=== PATIENT | male | born 1960 | race Caucasian/White ===

== ENCOUNTER 2017-12-02 14:26 | Emergency (ER) | payer OTHER ==
[~2017-12-02] VITALS: Ht 172.7 cm; Wt 116.6 kg
[~2017-12-02 14:26] MED LIST: ADULT LOW DOSE81 MG PO; ASPIR 8181 MG PO; BENAZEPRIL HCL20 MG PO; CELEXA; CELEXA40 MG PO; CLONAZEPAM 0.50.5 M1 PO; CLONAZEPAM PO; COUMADIN 1MG TAB1 M1 PO; COUMADIN 3 MG TA3 M1 PO; COUMADIN 5 MG TA5 M1 PO; FENOFIBRATE160 MG PO; FLOMAX0.4 MG PO; HYTRIN 5 M5 MG/1 CAP PO; LOTENSIN; LOVASTAT40 PO; LOVASTATIN; MONTELUKAST SOD10 MG PO; OMEPRAZOLE 20 M20 M1 PO; OMEPRAZOLE PO; PRADAXA150 MG PO; PREDNISONE 10 M10 M1 PO; PREDNISONE 20 M20 M1 PO; PROAIR HFA8.5 GM INH; SORINE 80 MG TA80 MG PO; SOTALOL 120 MG120 M1 PO; SOTALOL 120 MG120 MG PO; TRICOR; VENTOLIN HFA 1818 GM INH; XOPENEX HF1 UDINHALE INH; ZPAK PO
[2017-12-02] MEDS ORDERED: COUMADIN 5 MG TA5 M1 PO ×2 (14:42)
[2017-12-02] MEDS ORDERED: DOXYCYCLINE 10100 MG PO (15:15)
[2017-12-02] MEDS ORDERED: KEFLEX500 M1 PO (15:15)
[2017-12-02 15:22] VITALS: BP 100/79
== END 2017-12-02 15:24 | disposition home or self-care (01) ==
LOC: M.ERS 14:26
DX: S30.861A Insect bite (nonvenomous) of abdominal wall, initial encounter (principal); I48.91 Unspecified atrial fibrillation; E78.00 Pure hypercholesterolemia, unspecified; Z88.5 Allergy status to narcotic agent; Z88.1 Allergy status to other antibiotic agents; Z87.891 Personal history of nicotine dependence; W57.XXXA Bitten or stung by nonvenomous insect and other nonvenomous arthropods, initial encounter; Y93.89 Activity, other specified; Y92.89 Other specified places as the place of occurrence of the external cause; Y99.8 Other external cause status; J45.909 Unspecified asthma, uncomplicated

== ENCOUNTER 2018-02-20 15:24 | Emergency (ER) | payer MEDICAID ==
[~2018-02-20] VITALS: Ht 172.7 cm; Wt 115.7 kg
[~2018-02-20 15:24] MED LIST changes: +DOXYCYCLINE 10100 MG PO; +KEFLEX500 M1 PO
[2018-02-20] MEDS ORDERED: COZAAR 25 MG TA25 M2 PO (15:42)
[2018-02-20] MEDS ORDERED: LOPRESSOR25 PO (15:42)
[2018-02-20 16:31] LABS: ABSOLUTE EOSINOPHILS 0.1 thou/uL (0.0-0.7); ABSOLUTE LYMPHOCYTES 2.3 thou/uL (0.8-5.3); ABSOLUTE MONOCYTES 0.7 thou/uL (0.0-1.2); ABSOLUTE NEUTROPHILS 3.6 thou/uL (1.6-8.1); BASOPHILS 0.7 %; EOSINOPHILS 2.1 %; HEMATOCRIT 45.5 % (42.0-52.0); HEMOGLOBIN 15.3 gm/dL (14.0-18.0); MCH 30.4 pg (26.0-34.0); MCHC 33.5 g/dL (28.0-37.0); MCV 90.6 fL (80.0-100.0); MONOCYTES 9.9 %; MPV 9.7 fl. (7.2-11.1); NUCLEATED RBCS 0 /100WBC; PLATELET COUNT* 231 thou/uL (150-400); POLYS 53.3 %; RBC 5.02 mil/uL (4.50-6.00); RDW-CV 12.6 % (10.5-14.5); WBC 6.7 thou/uL (4.0-11.0)
[2018-02-20 16:44] LABS: ANION GAP 6 mmol/L (7-16); APTT 34.5 Seconds (25.0-31.3); BUN 11 mg/dL (7-18); CALCIUM 8.9 mg/dL (8.5-10.1); CHLORIDE 103 mmol/L (98-107); CO2 29 mmol/L (21-32); GLUCOSE 97 mg/dL (70-99); INR 2.1; PROTIME 20.3 Seconds (9.20-11.50); SODIUM 138 mmol/L (136-145)
[2018-02-20 16:55] LABS: ALBUMIN 3.7 g/dL (3.4-5.0); ALKALINE PHOSPHATASE 61 U/L (46-116); LIPASE 259 U/L (73-393); NT-PRO BRAIN NAT PEPTIDE 1153 pg/mL (<300); SGOT 20 U/L (15-37); SGPT 27 U/L (30-65); TOTAL BILIRUBIN 0.6 mg/dL (<0.1-1.0); TOTAL PROTEIN 7.3 g/dL (6.4-8.2); TROPONIN-I LEVEL <0.06 ng/mL (<0.06)
[2018-02-20] MEDS ORDERED: DOXYCYCLINE 10100 MG PO (17:41)
[2018-02-20] MEDS ORDERED: MUCINEX600 MG PO (17:41)
[2018-02-20] MEDS ORDERED: VENTOLIN HFA 1818 GM INH (17:41)
[2018-02-20] MEDS ORDERED: PREDNISONE 10 M10 MG PO (17:41)
[2018-02-20 18:17] VITALS: BP 111/86
--- NOTE | 2018-02-21 12:33 | EKG ---
[place] [address] ELECTROCARDIOGRAM REPORT Name: NADEGE BASS [id number] Admission: 02/20/18 Attend Phys: Discharge: 02/20/18 Date of : 60 Report #: [id number] THIS REPORT FOR: //name// [facility] ED Test Date: 2018-02-20 Test Time: 15:59:35 Pat Name: NADEGE BASS Department: Room: Gender: M Gold Marker: Bela PHIPPS : 1960 Requested By: Yenifer Ortiz Order Number: [id number] MD: Alexx Mata Measurements Intervals [place] Rate: 109 P: [place]: QRS: -1 QRSD: 64 T: 93 QT: 409 QTc: 551 Interpretive Statements Atrial fibrillation Low voltage, extremity leads Nonspecific T abnormalities, lateral leads Prolonged QT interval Compared to ECG 06/02/2017 01:38:17 T-wave abnormality now present Prolonged QT interval now present Ventricular premature complex(es) no longer present Myocardial infarct finding no longer present Electronically Signed On 02-21-2018 12:32:55 CDT by Alexx Mata [email or web address] <ELECTRONICALLY SIGNED> By: Alexx Mata MD, FACC 02/21/18 1232 1559 1559 Alexx Mata MD, FACC /EPI
== END 2018-02-20 18:19 | disposition home or self-care (01) ==
LOC: M.ERS 15:24
PROVIDERS: Physician Assistant
DX: J40 Bronchitis, not specified as acute or chronic (principal); J32.9 Chronic sinusitis, unspecified; I48.91 Unspecified atrial fibrillation; E78.00 Pure hypercholesterolemia, unspecified; I11.0 Hypertensive heart disease with heart failure; I50.9 Heart failure, unspecified; Z88.5 Allergy status to narcotic agent; Z88.1 Allergy status to other antibiotic agents; Z87.891 Personal history of nicotine dependence

== ENCOUNTER 2019-02-23 16:57 | Emergency (ER) | payer MEDICAID ==
[~2019-02-23] VITALS: Ht 172.7 cm; Wt 115.7 kg
[~2019-02-23 16:57] MED LIST changes: +COZAAR 25 MG TA25 M2 PO; +LOPRESSOR25 PO; +MUCINEX600 MG PO; +PREDNISONE 10 M10 MG PO
[2019-02-23] MEDS ORDERED: SPIRONOLACTONE25 M1 PO (17:09)
[2019-02-23] MEDS ORDERED: CELEXA20 MG PO (17:09)
[2019-02-23] MEDS ORDERED: FUROSEMIDE 20 M20 M1 PO (17:09)
[2019-02-23] MEDS ORDERED: TRAMADOL 50 MG50 MG PO (17:43)
[2019-02-23 18:01] VITALS: BP 118/81
== END 2019-02-23 18:01 | disposition home or self-care (01) ==
LOC: M.ERS 16:57
DX: S93.492A Sprain of other ligament of left ankle, initial encounter (principal); I48.91 Unspecified atrial fibrillation; E78.00 Pure hypercholesterolemia, unspecified; I11.0 Hypertensive heart disease with heart failure; I50.9 Heart failure, unspecified; Z88.1 Allergy status to other antibiotic agents; Z88.5 Allergy status to narcotic agent; Z87.891 Personal history of nicotine dependence; W18.39XA Other fall on same level, initial encounter; Y93.89 Activity, other specified; Y92.89 Other specified places as the place of occurrence of the external cause; Y99.8 Other external cause status

== ENCOUNTER 2020-10-27 15:37 | Emergency (ER) | payer MEDICAID ==
[~2020-10-27] VITALS: Ht 172.7 cm; Wt 115.6 kg
[~2020-10-27 15:37] MED LIST changes: +CELEXA20 MG PO; +FUROSEMIDE 20 M20 M1 PO; +SPIRONOLACTONE25 M1 PO; +TRAMADOL 50 MG50 MG PO
[2020-10-27] MEDS ORDERED: LIPITOR40 MG PO (15:50)
[2020-10-27] MEDS ORDERED: TOPROL XL200 MG PO (15:50)
[2020-10-27] MEDS ORDERED: ENTRESTO 24 MG1 EACH PO (15:50)
[2020-10-27] MEDS ORDERED: JANTOVEN5 MG PO (15:51)
[2020-10-27] MEDS ORDERED: WARFARIN SODIUM10 MG PO (15:51)
[2020-10-27] MEDS ORDERED: SPIRONOLACTONE25 MG PO (15:51)
[2020-10-27] MEDS ORDERED: TRAMADOL 50 MG50 MG PO (16:26)
[2020-10-27] MEDS ORDERED: ONDANSETRON ODT4 MG PO (16:26)
[2020-10-27 16:37] VITALS: BP 143/64
== END 2020-10-27 16:37 | disposition home or self-care (01) ==
LOC: M.ERS 15:37
DX: K62.5 Hemorrhage of anus and rectum (principal); I48.91 Unspecified atrial fibrillation; J45.909 Unspecified asthma, uncomplicated; E78.00 Pure hypercholesterolemia, unspecified; I11.0 Hypertensive heart disease with heart failure; I50.9 Heart failure, unspecified; Z87.891 Personal history of nicotine dependence; Z88.5 Allergy status to narcotic agent; Z88.1 Allergy status to other antibiotic agents

== ENCOUNTER 2020-11-08 15:25 | Emergency (ER) | payer MEDICAID ==
[~2020-11-08] VITALS: Ht 172.7 cm; Wt 115.7 kg
[~2020-11-08 15:25] MED LIST changes: +ENTRESTO 24 MG1 EACH PO; +JANTOVEN5 MG PO; +LIPITOR40 MG PO; +ONDANSETRON ODT4 MG PO; +SPIRONOLACTONE25 MG PO; +TOPROL XL200 MG PO; +WARFARIN SODIUM10 MG PO
[2020-11-08 16:24] LABS: ABSOLUTE EOSINOPHILS 0.1 thou/uL (0.0-0.7); ABSOLUTE LYMPHOCYTES 1.5 thou/uL (0.8-5.3); ABSOLUTE MONOCYTES 0.7 thou/uL (0.0-1.2); ABSOLUTE NEUTROPHILS 5.1 thou/uL (1.6-8.1); BASOPHILS 0.4 %; HEMATOCRIT 44.9 % (42.0-52.0); MCH 30.5 pg (26.0-34.0); MCHC 33.4 g/dL (28.0-37.0); MCV 91.3 fL (80.0-100.0); MONOCYTES 9.9 %; MPV 9.5 fl. (7.2-11.1); NUCLEATED RBCS 0 /100WBC; PLATELET COUNT* 234 thou/uL (150-400); POLYS 68.7 %; RBC 4.92 mil/uL (4.50-6.00); RDW-CV 12.8 % (10.5-14.5); WBC 7.4 thou/uL (4.0-11.0)
[2020-11-08 16:29] LABS: CALCIUM 9.8 mg/dL (8.5-10.1); CREATININE 1.2 mg/dL (0.6-1.3)
[2020-11-08 16:33] LABS: INR 2.5; PROTIME 25.6 Seconds (9.20-11.50)
[2020-11-08 16:35] LABS: ALBUMIN 4.2 g/dL (3.4-5.0); TOTAL BILIRUBIN 0.8 mg/dL (<0.1-1.0); TOTAL PROTEIN 7.7 g/dL (6.4-8.2)
[2020-11-08] MEDS ORDERED: LEVSIN0.125 MG PO (18:22)
[2020-11-08] MEDS ORDERED: LIDOCAINE 2%2 %/5 GM TOP (18:22)
[2020-11-08] MEDS ORDERED: ULTRAM 50MG TAB50 MG PO (18:22)
[2020-11-08 18:30] VITALS: BP 104/83
--- NOTE | 2020-11-09 09:43 | EKG ---
[place] [address] ELECTROCARDIOGRAM REPORT Name: NADEGE BASS Room: [facility]#: [id number] Admission: 11/08/20 Attend Phys: Discharge: 11/08/20 Date of : 60 Date of Service: 11/08/20 1557 Report #: [id number] THIS REPORT FOR: //name// [facility] ED Test Date: 2020-11-08 Test Time: 15:57:49 Pat Name: NADEGE BASS Department: Room: Gender: Implementation Manager: [place] : 1960 Requested By: Eleuterio Becerra Order Number: [id number] MD: Larry Evans Measurements Intervals [place] Rate: 104 P: [place]: QRS: -19 QRSD: 95 T: 116 QT: 361 QTc: 475 Interpretive Statements Atrial fibrillation Inferior infarct, old Lateral leads are also involved Compared to ECG 02/20/2018 15:59:35 no change Electronically Signed On 11-09-2020 9:43:47 CDT by Larry Evans [email or web address] <ELECTRONICALLY SIGNED> By: Larry Evans MD, [facility] 11/09/20 0943 1557 1557 Larry Evans MD, [facility] /EPI
== END 2020-11-08 18:30 | disposition home or self-care (01) ==
LOC: M.ERS 15:25
PROVIDERS: Physician Assistant
DX: K60.2 Anal fissure, unspecified (principal); K64.4 Residual hemorrhoidal skin tags; I48.91 Unspecified atrial fibrillation; J45.909 Unspecified asthma, uncomplicated; E78.00 Pure hypercholesterolemia, unspecified; I11.0 Hypertensive heart disease with heart failure; I50.9 Heart failure, unspecified; Z95.0 Presence of cardiac pacemaker; Z79.899 Other long term (current) drug therapy; Z79.01 Long term (current) use of anticoagulants; Z89.012 Acquired absence of left thumb; Z88.5 Allergy status to narcotic agent; Z88.1 Allergy status to other antibiotic agents; Z87.891 Personal history of nicotine dependence

== ENCOUNTER 2020-11-16 18:45 | Emergency (ER) | payer MEDICAID ==
[~2020-11-16] VITALS: Ht 172.7 cm; Wt 115.7 kg
[~2020-11-16 18:45] MED LIST changes: +LEVSIN0.125 MG PO; +LIDOCAINE 2%2 %/5 GM TOP; +ULTRAM 50MG TAB50 MG PO
[2020-11-16 19:45] LABS: ABSOLUTE EOSINOPHILS 0.1 thou/uL (0.0-0.7); ABSOLUTE MONOCYTES 0.8 thou/uL (0.0-1.2); ABSOLUTE NEUTROPHILS 6.6 thou/uL (1.6-8.1); BASOPHILS 0.3 %; EOSINOPHILS 0.7 %; HEMATOCRIT 44.4 % (42.0-52.0); HEMOGLOBIN 14.6 gm/dL (14.0-18.0); LYMPHOCYTES 20.8 %; MCH 30.4 pg (26.0-34.0); MCHC 32.9 g/dL (28.0-37.0); MCV 92.3 fL (80.0-100.0); MPV 9.7 fl. (7.2-11.1); NUCLEATED RBCS 0 /100WBC; POLYS 70.2 %; RBC 4.81 mil/uL (4.50-6.00); RDW-CV 12.8 % (10.5-14.5); WBC 9.4 thou/uL (4.0-11.0)
[2020-11-16 20:00] LABS: ALBUMIN 3.9 g/dL (3.4-5.0); CREATININE 1.2 mg/dL (0.6-1.3); POTASSIUM 4.2 mmol/L (3.5-5.1); TOTAL BILIRUBIN 0.9 mg/dL (<0.1-1.0); TOTAL PROTEIN 7.3 g/dL (6.4-8.2)
[2020-11-16 20:07] LABS: CALCIUM 9.7 mg/dL (8.5-10.1)
[2020-11-16 20:25] LABS: URINE BILIRUBIN NEGATIVE (Negative); URINE BLOOD NEGATIVE (Negative); URINE CLARITY CLEAR; URINE COLOR YELLOW; URINE GLUCOSE-RANDOM NEGATIVE (Negative); URINE KETONES NEGATIVE (Negative); URINE LEUKOCYTES-REFLEX NEGATIVE (Negative); URINE NITRITE-REFLEX NEGATIVE (Negative); URINE PROTEIN NEGATIVE (Negative); URINE SPECIFIC GRAVITY <= 1.005 (1.005-1.030); URINE UROBILINOGEN 0.2 E.U./dl (0.2-1.0)
[2020-11-16 20:34] LABS: APTT 24.2 Seconds (25.0-31.3); INR 2.2; PROTIME 22.4 Seconds (9.20-11.50)
[2020-11-16 20:35] LABS: PLATELET COUNT* 188 thou/uL (150-400)
[2020-11-16] MEDS ORDERED: PERCOCET PO (21:36)
[2020-11-16] MEDS ORDERED: PROCTOCORT30 MG RECTAL (21:36)
[2020-11-16 21:54] VITALS: BP 110/60
== END 2020-11-16 21:55 | disposition home or self-care (01) ==
LOC: M.ERS 18:45
PROVIDERS: Nurse Practitioner Family
DX: K64.8 Other hemorrhoids (principal); I48.91 Unspecified atrial fibrillation; J45.909 Unspecified asthma, uncomplicated; E78.00 Pure hypercholesterolemia, unspecified; I11.0 Hypertensive heart disease with heart failure; I50.9 Heart failure, unspecified; Z87.19 Personal history of other diseases of the digestive system; Z87.891 Personal history of nicotine dependence; Z88.1 Allergy status to other antibiotic agents; Z88.5 Allergy status to narcotic agent; Z88.6 Allergy status to analgesic agent

== ENCOUNTER 2021-03-06 17:23 | Emergency (ER) | payer MEDICAID ==
[~2021-03-06] VITALS: Ht 172.7 cm; Wt 111.1 kg
[~2021-03-06 17:23] MED LIST changes: +PERCOCET PO; +PROCTOCORT30 MG RECTAL
[2021-03-06 19:32] VITALS: BP 112/81
== END 2021-03-06 19:32 | disposition home or self-care (01) ==
LOC: M.ERS 17:23
DX: Z20.822 Contact with and (suspected) exposure to COVID-19 (principal); I11.0 Hypertensive heart disease with heart failure; I50.9 Heart failure, unspecified; E78.00 Pure hypercholesterolemia, unspecified; J45.909 Unspecified asthma, uncomplicated; I48.91 Unspecified atrial fibrillation; Z87.891 Personal history of nicotine dependence; Z88.1 Allergy status to other antibiotic agents; Z88.5 Allergy status to narcotic agent; Z88.6 Allergy status to analgesic agent